=== PATIENT | female | born 1980 | race Caucasian/White ===

== ENCOUNTER 2019-02-17 14:24 | Emergency (ER) | payer BC ==
[2019-02-17 14:54] VITALS: BP 121/71
--- NOTE | 2019-02-17 17:02 | UC ---
Abdominal Pain Female HPI - HPI Summary HPI Summary: WHILE AT REST TODAY PATIENT DEVELOPED NUMB/TINGLY SENSATION IN HER LEFT UPPER ARM. AT THE SAME TIME FELT DIZZY/LIGHTHEADED IF SHE WOULD PASS OUT. NO ACTUAL LOC. SHE ALSO FELT NAUSEATED AND SWEATY. NO CHEST PAIN OR DIFFICULTY BREATHING. THESE SYMPTOMS LASTED ABOUT 1 HOUR. A COUPLE OF DAYS AGO SHE HAD MODERATE TO SEVERE ABDOMINAL PAIN AND CRAMPING BUT DENIES ANY DIARRHEA OR NAUSEA AT THAT TIME. ABDOMINAL PAIN SYMPTOMS HAVE RESOLVED AT THIS TIME. SHE DENIES ANY URINARY SYMPTOMS. HAS A MIRENA IUD AND NO LONGER HAS PERIODS. CAME TO CONCERNED ABOUT HER EPISODE OF DIZZINESS. - History of Current Complaint Chief Complaint: UCAbdominalPain Stated Complaint: PAIN IN ARM/STOMACH Time Seen by Provider: 02/17/19 15:03 Hx Obtained From: Patient Onset/Duration: Sudden Onset, Resolved Severity Initially: Moderate Severity Currently: None Pain Intensity: 1 Pain Scale Used: 0-10 Numeric Radiates: No Character: Cramping Aggravating Factor(s): Nothing Alleviating Factor(s): Spontaneous Resolution Allergies/Adverse Reactions: Allergies Allergy/AdvReac Type Severity Reaction Status Date / Time No Known Allergies Allergy Verified 02/17/19 14:54 PMH/Surg Hx/FS Hx/Imm Hx Previously Healthy: Yes - Surgical History Surgical History: None - Family History Known Family History: Negative: Cardiac Disease, Hypertension - Social History Alcohol Use: None Substance Use Type: None Smoking Status (MU): Never Smoked Tobacco Review of Systems All Other Systems Reviewed And Are Negative: Yes Constitutional: Positive: Negative ENT: Positive: Negative Respiratory: Positive: Negative Cardiovascular: Positive: Palpitations Gastrointestinal: Positive: Abdominal Pain, Nausea. Negative: Vomiting, Diarrhea Genitourinary: Positive: Negative Neurological: Positive: Paresthesia Physical Exam Triage Information Reviewed: Yes Appearance: Well-Appearing, No Pain Distress, Well-Nourished Vital Signs: Initial Vital Signs Temp 98.1 F 02/17/19 14:49 Pulse 84 02/17/19 14:49 Resp 20 02/17/19 14:49 BP 121/71 02/17/19 14:49 Pulse Ox 99 02/17/19 14:49 Laboratory Tests 02/17/19 02/17/19 16:00 16:02 POC Urine Color Yellow POC Urine Clarity Clear POC Urine pH 7.0 POC Ur Specif [place] <= 1.005 L POC Urine Protein Negative POC Ur Glucose (UA) Negative POC Urine Ketones Trace A POC Urine Blood Negative POC Urine Nitrite Negative POC Urine Bilirubin Negative POC Urine Urobilinogen 0.2 POC U Leukocyte Esteras Negative POC Ur Test Negative Vital Signs Reviewed: Yes Eyes: Positive: Conjunctiva Clear ENT: Positive: Hearing grossly normal, Pharynx normal, TMs normal Neck: Positive: Supple, Nontender, No Lymphadenopathy Respiratory Exam: Normal Cardiovascular Exam: Normal Abdomen Description: Positive: Soft, Other: - MILD RLQ TENDERNESS. NO REBOUND OR RIGIDITY. NEG OBTURATOR. NEG PSOAS.. Negative: CVA Tenderness (R), CVA Tenderness (L), Distended, Guarding Bowel Sounds: Positive: Present Musculoskeletal: Positive: No Edema Neurological: Positive: Alert, Other: - CN II-XII GROSSLY INTACT BILATERALLY. RAPID ALTERNATING MOVEMENTS INTACT. NEG PRONATOR DRIFT. NEG ROMBERG. 5/5 STRENGTH. HEEL TO DE PAZ INTACT BILATERALLY. TANDEM GAIT INTACT. FINGER TO NOSE INTACT. Psychological: Positive: Age Appropriate Behavior Skin: Negative: Rashes Abd Pain Female Course/Dx - Course Course Of Treatment: THE PATIENT PRESENTED WITH A COUPLE OF DAYS OF CRAMPY ABDOMINAL PAIN AND NAUSEA WHICH HAVE NOW RESOLVED. TODAY DEVELOPED SOME PARESTHESIAS TO HER LEFT UPPER EXTREMITY ALONG WITH SOME NAUSEA, PALPITATIONS AND DIZZINESS. SHE FELT IF SHE WOULD PASS OUT BUT DID NOT. DENIES ANY HISTORY OF UNDERLYING ANXIETY. STATES HER SYMPTOMS ARE MUCH IMPROVED NOW BUT WAS CONCERNED SO SHE CAME IN FOR EVALUATION. ON EXAM PATIENT LOOKS WELL AND IS IN NO DISTRESS. HAS NO SIGNIFICANT FAMILY HISTORY THAT SHE REPORTS. LOW SUSPICION FOR ANY CARDIAC ETIOLOGY. DISCUSSED GOING TO THE ER FOR FURTHER WORKUP WHICH PATIENT DECLINES AT PRESENT. I THINK THIS IS REASONABLE GIVEN HER IMPROVED SYMPTOMS. URINE TEST TODAY UNREMARKABLE. NEGATIVE. BLOOD DRAWN FOR CBC, CMP AND TSH. HAVE ADVISED PATIENT TO GO TO THE ER WITHOUT FAIL IF HER SYMPTOMS RETURN OR WORSEN. - Differential Dx/Diagnosis Provider Diagnosis: Paresthesia and pain of left extremity, Abdominal pain, RLQ Discharge - Sign-Out/Discharge Documenting (check all that apply): Patient Departure All imaging exams completed and their final reports reviewed: No Studies - Discharge Plan Condition: Stable Disposition: HOME Patient Education Materials: Paresthesia (ED), Abdominal Pain (ED) Referrals: Shaina Carrero NP [Nurse Practitioner] - 1 Week Additional Instructions: UNCLEAR CAUSE OF YOUR SYMPTOMS TODAY. BE SURE TO STAY WELL-HYDRATED AND RESTED. FOLLOW-UP WITH YOUR PCP FOR REEVALUATION. BLOOD DRAWN TODAY TO CHECK YOUR BLOOD COUNT, METABOLIC PANEL AND THYROID. URINE TEST TODAY WAS NEGATIVE. GO TO THE ER WITHOUT FAIL IF YOU DEVELOP WORSENING PAIN, NUMBNESS/TINGLING, FEVER, NAUSEA OR ANY OTHER CONCERNING SYMPTOMS. OBSERVATION FOR APPENDICITIS: At this time, the abdominal pain does not seem to be appendicitis. Our next "test" will be passage of time. If you have early appendicitis, signs will appear to help us make the diagnosis. Most of the time, the pain goes away. In these cases, the pain is usually due to a virus in the lymph glands near the appendix, or due to an ovarian cyst or ovulation. Unless the pain is gone, you should come back for a recheck. This is usually done in 8 to 12 hours. Be sure you understand your follow-up instructions. GO TO THE ER IMMEDIATELY IF: (1) the pain becomes much more severe and sharply increases with movement or coughing, (2) vomiting becomes frequent, (3) there is blood in the vomit, urine, or bowel movements, (4) there are shaking chills or fever, or (5) the abdomen becomes more distended or swollen. - Billing Disposition and Condition Condition: STABLE Disposition: Home
[2019-02-17 19:08] LABS: Hematocrit 43 % (33-41); Hemoglobin 14.3 g/dL (12.0-16.0); Mean Corpuscular HGB Conc 34 g/dL (31-36); Mean Corpuscular Hemoglobin 31 pg (27-31); Mean Corpuscular Volume 91 fL (80-97); Mean Platelet Volume 9.6 fL (7.4-10.4); Platelet Count 259 10^3/uL (150-450); Red Blood Count 4.67 10^6 /uL (3.70-4.87); Red Cell Distribution Width 13 % (10.5-15); White Blood Count 7.9 10^3/uL (3.5-10.8)
[2019-02-17 19:18] LABS: Albumin 4.7 g/dL (3.2-5.2); Calcium 9.5 mg/dL (8.6-10.3); Potassium 4.1 mmol/L (3.5-5.0); Total Bilirubin 0.5 mg/dL (0.2-1.0)
[2019-02-17 19:24] LABS: Albumin/Globulin Ratio 1.5 (1-3); BUN/Creatinine Ratio 18.5 (8-20); EGFR African American 95.2 (>60); EGFR Non-African American 78.7 (>60); Globulin 3.2 g/dL (2-4); Total Protein 7.9 g/dL (6.4-8.9)
[2019-02-17 19:34] LABS: TSH (Thyroid Stimulating Horm) 1.62 mcIU/mL (0.34-5.60)
[2019-02-17 21:09] LABS: ABS Basophils 0 10^3/ul (0-0.2); ABS Eosinophils 0 10^3/ul (0-0.6); ABS Lymphocytes 1.6 10^3/ul (1.0-4.8); ABS Monocytes 0.5 10^3/ul (0-0.8); ABS Neutrophils 5.7 10^3/ul (1.5-7.7); ABS Nucleated RBC 0 10^3/ul; Eosinophil % 0.4 %; Lymphocyte % 20.5 %; Nucleated Red Blood Cells % 0
--- NOTE | 2019-02-18 10:30 | UC ---
- Progress Note Progress Note: CBC, CMP TSH WNL. NO CHANGE IN MGMT. FOLLOW-UP PCP Course/Dx - Diagnoses Provider Diagnoses: Paresthesia and pain of left extremity, Abdominal pain, RLQ Discharge - Sign-Out/Discharge Documenting (check all that apply): Post-Discharge Follow Up All imaging exams completed and their final reports reviewed: No Studies - Discharge Plan Condition: Stable Disposition: HOME Patient Education Materials: Paresthesia (ED), Abdominal Pain (ED) Referrals: Shaina Carrero NP [Nurse Practitioner] - 1 Week Additional Instructions: UNCLEAR CAUSE OF YOUR SYMPTOMS TODAY. BE SURE TO STAY WELL-HYDRATED AND RESTED. FOLLOW-UP WITH YOUR PCP FOR REEVALUATION. BLOOD DRAWN TODAY TO CHECK YOUR BLOOD COUNT, METABOLIC PANEL AND THYROID. URINE TEST TODAY WAS NEGATIVE. GO TO THE ER WITHOUT FAIL IF YOU DEVELOP WORSENING PAIN, NUMBNESS/TINGLING, FEVER, NAUSEA OR ANY OTHER CONCERNING SYMPTOMS. OBSERVATION FOR APPENDICITIS: At this time, the abdominal pain does not seem to be appendicitis. Our next "test" will be passage of time. If you have early appendicitis, signs will appear to help us make the diagnosis. Most of the time, the pain goes away. In these cases, the pain is usually due to a virus in the lymph glands near the appendix, or due to an ovarian cyst or ovulation. Unless the pain is gone, you should come back for a recheck. This is usually done in 8 to 12 hours. Be sure you understand your follow-up instructions. GO TO THE ER IMMEDIATELY IF: (1) the pain becomes much more severe and sharply increases with movement or coughing, (2) vomiting becomes frequent, (3) there is blood in the vomit, urine, or bowel movements, (4) there are shaking chills or fever, or (5) the abdomen becomes more distended or swollen. - Billing Disposition and Condition Condition: STABLE Disposition: Home
== END 2019-02-17 16:41 | disposition home or self-care (01) ==
LOC: UCEAST 14:24
DX: R20.2 Paresthesia of skin (principal); R10.31 Right lower quadrant pain; R11.0 Nausea; R00.2 Palpitations; Z32.02 Encounter for pregnancy test, result negative
CPT/HCPCS: 36415; 80053; 81003; 84443; 84702; 85025; 99211; G0463